=== PATIENT | female | born 1965 | race African-American/Black ===

== ENCOUNTER 2019-06-11 01:38 | Inpatient (IN) | payer MEDICAID ==
[~2019-06-11] VITALS: Ht 165.1 cm; Wt 77.1 kg
[2019-06-11 03:21] LABS: CHLORIDE 100 mEq/L (98-107)
[2019-06-11 03:26] LABS: BASOPHILS % 0.3 % (0.0-2.0); EOSINOPHILS % 0.3 % (0.0-5.0); HEMATOCRIT. 32.5 % (36.0-48.0); LYMPHOCYTES % 8.1 % (20.0-50.0); MEAN CORPUSCULAR HEMOGLOBIN 31.6 pg (28.0-32.0); MEAN CORPUSCULAR VOLUME 93.1 fL (81.0-99.0); MEAN PLATELET VOLUME 8.8 fl (7.4-10.4); MONOCYTES % 2.8 % (2.0-8.0); NEUTROPHILS % 88.5 % (40.0-76.0); PLATELET 210 x1000/uL (130-400); RED BLOOD CELL COUNT 3.49 mill/uL (4.2-5.4); RED CELL DISTRIBUTION WIDTH 14.3 % (11.6-14.6)
[2019-06-11] MEDS ORDERED: POTASSIUM CHLORIDE 20MEQ TABLET SR PO NR (04:15)
[2019-06-11] MEDS ORDERED: SODIUM CHLORIDE 0.9% 1000ML BAG (SEPSIS BOLUS) IV ONE (04:45)
[2019-06-11] MEDS ORDERED: CEFTRIAXONE 1 G PREMIX 50 ML IV ONE (06:00)
[2019-06-11 06:07] LABS: CLARITY URINE CLOUDY (CLEAR); COLOR URINE YELLOW (YELLOW); KETONES URINE TRACE (NEGATIVE); LEUKOCYTE ESTERASE URINE TRACE (NEGATIVE); NITRITE URINE NEGATIVE (NEGATIVE); OCCULT BLOOD URINE NEGATIVE (NEGATIVE); PROTEIN URINE 2+ (NEGATIVE); SPECIFIC GRAVITY URINE 1.025 (1.005-1.030)
[2019-06-11] MEDS ORDERED: LEVOFLOXACIN 500MG PREMIX 100 ML IV SCH (09:30)
[2019-06-11] MEDS ORDERED: IPRATROPIUM/ALBUTEROL 0.5-3(2.5)MG/3ML NEB HHN PRN (09:30)
[2019-06-11] MEDS ORDERED: CLONIDINE 0.1MG TABLET PO PRN (09:30)
[2019-06-11] MEDS ORDERED: ONDANSETRON HCL 4MG/2ML INJ IV PRN (09:30)
[2019-06-11] MEDS: ENOXAPARIN 40MG/0.4ML SYR SUBCUT SCH (09:30)
[2019-06-11] MEDS ORDERED: LEVOFLOXACIN 500MG PREMIX 100 ML IV NR (09:45)
[2019-06-11 10:06] LABS: PHOSPHORUS 2.1 mg/dL (2.5-4.9)
[2019-06-11] MEDS: ACETAMINOPHEN 325MG TABLET PO PRN ×2 (10:55→20:47)
[2019-06-11] MEDS ORDERED: LORAZEPAM 2MG/ML CPJ IV PRN (15:15)
[2019-06-11 18:10] VITALS: BP 124/88
[2019-06-11 20:00] VITALS: BP 136/80
[2019-06-11] MEDS ORDERED: DEXTROSE 50% WATER 50ML SYRINGE IV PRN (20:15)
[2019-06-11 20:40] VITALS: BP 136/90
[2019-06-11] MEDS: DIPHENHYDRAMINE 50MG/ML VIAL IV PRN (20:46)
[2019-06-11] MEDS: INSULIN LISPRO 100 UNITS/ML SUBCUT SCH (20:47)
[2019-06-11] MEDS: BLOOD SUGAR DIAGNOSTIC STRIP TEST SCH (20:47)
[2019-06-11] MEDS: CHLORDIAZEPOXIDE 25MG CAPSULE PO SCH (21:12)
[2019-06-12] VITALS: BP 127/89
[2019-06-12] MEDS: DIPHENHYDRAMINE 50MG/ML VIAL IV PRN ×3 (03:56→21:40)
[2019-06-12 04:00] VITALS: BP_SYST 128; BP_DIAS 86; BP_DIAS 96
[2019-06-12] MEDS: ACETAMINOPHEN 325MG TABLET PO PRN ×2 (05:05→17:10)
[2019-06-12] MEDS: CHLORDIAZEPOXIDE 25MG CAPSULE PO SCH ×3 (05:06→21:02)
[2019-06-12] MEDS: BLOOD SUGAR DIAGNOSTIC STRIP TEST SCH ×4 (06:19→21:02)
[2019-06-12] MEDS: INSULIN LISPRO 100 UNITS/ML SUBCUT SCH ×4 (06:19→21:00)
[2019-06-12 08:00] VITALS: BP 130/97
[2019-06-12] MEDS ORDERED: PNEUMOCOCCAL 23-VAL P-SAC VAC 0.5 ML IM ONE (08:00)
[2019-06-12 08:07] LABS: BASOPHILS % 0.4 % (0.0-2.0); EOSINOPHILS % 2.3 % (0.0-5.0); HEMATOCRIT. 33.1 % (36.0-48.0); HEMOGLOBIN. 11.2 g/dL (12.0-16.0); LYMPHOCYTES % 29.7 % (20.0-50.0); MEAN CORPUSCULAR HEMOGLOBIN 31.9 pg (28.0-32.0); MEAN CORPUSCULAR VOLUME 94.4 fL (81.0-99.0); MEAN PLATELET VOLUME 8.8 fl (7.4-10.4); MONOCYTES % 7.1 % (2.0-8.0); NEUTROPHILS % 60.5 % (40.0-76.0); PLATELET 236 x1000/uL (130-400); RED BLOOD CELL COUNT 3.51 mill/uL (4.2-5.4); RED CELL DISTRIBUTION WIDTH 14.3 % (11.6-14.6)
[2019-06-12 08:20] LABS: CHLORIDE 109 mEq/L (98-107)
[2019-06-12 08:31] LABS: LDL CHOLESTEROL 114 mg/dL (5-100)
[2019-06-12 08:33] LABS: HDL CHOLESTEROL 42 mg/dL (40-59)
[2019-06-12] MEDS ORDERED: LEVOFLOXACIN 500MG PREMIX 100 ML IV SCH (09:00)
[2019-06-12] MEDS: ENOXAPARIN 40MG/0.4ML SYR SUBCUT SCH (09:30)
[2019-06-12] MEDS ORDERED: INFLUENZA VIRUS VACCINE(AFLURIA) 0.5ML SYR IM ONE (10:00)
[2019-06-12 12:00] VITALS: BP 99/81
[2019-06-12 16:00] VITALS: BP 125/96
[2019-06-12] MEDS ORDERED: CEFTRIAXONE 1 G PREMIX 50 ML IV SCH (16:00)
[2019-06-12] MEDS ORDERED: AZITHROMYCIN 500 MG in DEXT 5% WATER 250 ML IV SCH (17:00)
[2019-06-12 20:00] VITALS: BP 126/85
[2019-06-13] VITALS: BP 124/82
[2019-06-13 04:00] VITALS: BP 145/103
[2019-06-13] MEDS: CHLORDIAZEPOXIDE 25MG CAPSULE PO SCH ×2 (05:47→13:16)
[2019-06-13] MEDS: BLOOD SUGAR DIAGNOSTIC STRIP TEST SCH ×2 (05:50→11:45)
[2019-06-13] MEDS: INSULIN LISPRO 100 UNITS/ML SUBCUT SCH ×2 (05:51→11:48)
[2019-06-13 08:00] VITALS: BP 117/70
[2019-06-13] MEDS: ENOXAPARIN 40MG/0.4ML SYR SUBCUT SCH (09:18)
[2019-06-13] MEDS: DIPHENHYDRAMINE 50MG/ML VIAL IV PRN (09:20)
[2019-06-13 12:18] VITALS: BP 125/85
[2019-06-13] MEDS ORDERED: AMOX-424 MT ×2 (12:57→13:26)
[2019-06-13] MEDS ORDERED: CHLO25CA10 MT (12:57)
[2019-06-13] MEDS ORDERED: AZIT500T8 MT ×2 (12:57→13:26)
[2019-06-13] MEDS ORDERED: ATOR40TA70 MT (13:00)
[2019-06-13 15:52] VITALS: BP 125/85
[2019-06-13 16:20] VITALS: BP 129/93
== END 2019-06-13 16:30 | disposition home or self-care (01) | DRG 720 ==
LOC: ER 01:38 → EDBEDREQ 05:59 → EDBEDREQSVC 05:59 → EDBEDREQTM 05:59 → ENRESERV 17:07 → 5WST 18:06
PROVIDERS: ADMIT Internal Medicine; ATTEND Internal Medicine
DX: A41.9 Sepsis, unspecified organism (principal); J18.9 Pneumonia, unspecified organism; E11.65 Type 2 diabetes mellitus with hyperglycemia; D64.9 Anemia, unspecified; E87.6 Hypokalemia; F17.200 Nicotine dependence, unspecified, uncomplicated; I10 Essential (primary) hypertension; F10.20 Alcohol dependence, uncomplicated; Z79.84 Long term (current) use of oral hypoglycemic drugs
CPT/HCPCS: 36415; 71045; 80053; 80061; 81003; 82962; 83036; 83605; 83735; 84100; 84145; 84443; 85025; 87804; 90686; 90732; 93005; 99291; J0456; J0696; J1200; J1650; J1956; J7030; J7060